=== PATIENT | female | born 1940 | race Asian ===

== ENCOUNTER 2017-08-16 08:10 | Emergency (ER) | payer MEDICARE, BC ==
[~2017-08-16] VITALS: Ht 154.9 cm; Wt 52.2 kg
[2017-08-16 09:08] VITALS: BP 160/70
== END 2017-08-16 14:57 | disposition left against medical advice (07) ==
LOC: ER 08:10
DX: G45.9 Transient cerebral ischemic attack, unspecified (principal); E78.5 Hyperlipidemia, unspecified; I10 Essential (primary) hypertension; Z53.29 Procedure and treatment not carried out because of patient's decision for other reasons
CPT/HCPCS: 70450

== ENCOUNTER → 2017-08-30 | Outpatient (CLI) | payer MEDICARE, BC | END | disposition home or self-care (01) | LOC: XY 09:09 | PROVIDERS: ATTEND Psychiatry & Neurology Neurology | DX: G31.9 Degenerative disease of nervous system, unspecified (principal); I67.2 Cerebral atherosclerosis; I63.9 Cerebral infarction, unspecified; Z86.73 Personal history of transient ischemic attack (TIA), and cerebral infarction without residual deficits | CPT/HCPCS: 93886 ==

== ENCOUNTER → 2017-09-12 | Outpatient (CLI) | payer MEDICARE, OTHER | END | disposition home or self-care (01) | LOC: XYW 09:11 | PROVIDERS: ATTEND Psychiatry & Neurology Neurology | DX: I08.0 Rheumatic disorders of both mitral and aortic valves (principal); I25.10 Atherosclerotic heart disease of native coronary artery without angina pectoris; I10 Essential (primary) hypertension | CPT/HCPCS: 93306 ==